=== PATIENT | female | born 1970 | race Caucasian/White ===

== ENCOUNTER 2021-02-25 14:55 | Outpatient (REF) | payer MEDICAID, SELFPAY ==
[2021-02-25 15:07] LABS: HCT 41.8 % (36.0-46.0); HGB 13.3 g/dL (11.2-15.7); MCH 28.5 pg (27.0-33.0); MCHC 31.8 % (32.0-36.0); MCV 89.7 fL (80-95); MPV 10.2 fL (8.0-11.0); Platelet Count 236 10^3/uL (130-400); RBC 4.66 10^6/uL (3.93-5.22); RDW 13.4 % (11.7-14.6); RDW-SD 44.1 fL; WBC 6.55 10^3/uL (4.4-10.8)
[2021-02-25 15:41] LABS: ALT 19 U/L (14-59); AST 13 U/L (15-37); Albumin 3.5 g/dL (3.4-5.0); Alkaline Phosphatase 123 U/L (46-116); Anion Gap 8.3 mmol/L (3-11); BUN 15 mg/dL (7-18); Bilirubin, Total 0.2 mg/dL (0.2-1.0); CO2 26.7 mmol/L (21.0-32.0); CREATININE 0.7 mg/dL (0.55-1.02); Calcium 8.6 mg/dL (8.5-10.1); Calculated LDL 120 mg/dL (<100); Chloride 102 mmol/L (98-107); Cholesterol 192 mg/dL (<200); Glucose 110 mg/dL (74-106); HDL Cholesterol 53 mg/dL (40-60); Potassium 4.3 mmol/L (3.5-5.1); Sodium 137 mmol/L (136-145); TSH (W/Ref FT4) 0.92 uIU/mL (0.36-3.74); Triglyceride 98 mg/dL (<150)
[2021-02-25 15:52] LABS: Vitamin D 25 Total 21.3 ng/mL (30-100)
== END 2021-02-25 14:56 | disposition home or self-care (01) ==
LOC: NCHCN 14:55
PROVIDERS: PCP Nurse Practitioner Family; Visit Provider Nurse Practitioner Family
DX: F33.9 Major depressive disorder, recurrent, unspecified (principal); Z72.0 Tobacco use; Z00.00 Encounter for general adult medical examination without abnormal findings
CPT/HCPCS: 80053; 80061; 82306; 85027; 84443

== ENCOUNTER → 2021-09-20 00:25 | Outpatient (CLI) | payer MEDICAID, SELFPAY ==
--- NOTE | 2021-09-20 | DI.RAD_ITS ---
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 TECHNIQUE: 2D digital imaging was performed of the lumbar spine. Five images were obtained. AP, la teral, right oblique, left oblique and L5-S1 spot views were obtained. COMPARISON: No exams were available for comparison FINDINGS: BONES: No fracture or destructive lesion. Endplate osteophytes are seen throughout the lumbar spine. No facet hypertrophy identified. DISKS: There is disc space narrowing at L1-L2 and L2-L3. ALIGNMENT: There is a mild right convex curvature of the thoracolumbar spine. No spondylolysis or sp ondylolisthesis. SOFT TISSUE: Atherosclerosis is present. IMPRESSION: Moderate degenerative changes in the lumbar spine. DATA REPOSITORY: RADIATION DOSE DELIVERED:
--- OUTSIDE RECORDS SUMMARY | 2021-09-20 00:27 | XMS_ITS | Clinical Summary ---
:1970 Author Organization [place] [address] Care Team Providers Name Role Phone Rj Herron DO Primary Care Provider Allergies No known active allergies Medications Medication Sig Dispensed Refills Start Date End Date Status PROAIR HFA 90 Inhale 2 puffs 5 01/14/2017 Active mcg/actuation HFA Aerosol into the lungs Inhaler as needed. gabapentin (NEURONTIN) Take 600 mg by 5 01/14/2017 Active 600 mg Tablet mouth 4 times daily. methylphenidate HCl Take 1 tablet 0 01/15/2017 Active (RITALIN) 20 mg Tablet by mouth 3 times daily. mirtazapine (REMERON) 15 Take 1 tablet 5 12/26/2016 Active mg Tablet by mouth nightly. oxyCODONE-acetaminophen Take 1 tablet 0 01/21/2017 Active (PERCOCET) 10-325 mg by mouth every Tablet 8 hours. Oxymorphone 15 mg Tablet Take 1 tablet 0 Active Sustained Release 12 hr by mouth nightly. Social History Tobacco Use Types Packs/Day Years Used Date Current Every Day Smoker Cigarettes 1 Smokeless Tobacco: Never Used Sex Assigned at Date Recorded Not on file Plan of Treatment Health Maintenance Due Date Last Done Comments Covid-19 Vaccine (#1) 1974 HIV screen 10/24/1987 Hepatitis C Screening 10/24/1987 Tdap adult 1988 Tetanus vaccine 1988 HPV test 10/24/1999 PAP Smear 10/24/1999 Breast Cancer Share Decision Needed 2009 Colonoscopy 2014 Breast Cancer screening 10/24/2019 Zoster vaccine (1 of 2) 10/24/2019 Influenza (Flu) vaccine (1 of 1 - Influenza standard 11/07/2021 series) Insurance Payer Benefit Plan / Subscriber ID Effective Dates Phone Addre ss Type Group [place] [id number] 2017-Pres [phone] [address] [facility] [address] [place], [place] [address] Care Teams Fingerprint Classifier Relationship Specialty Start Date End Date Rj Herron, PCP - General General Internal Medicine 08/08/15 [address] [place] [address]
--- OUTSIDE RECORDS SUMMARY | 2021-09-20 00:27 | XMS_ITS | Encounter Summary ---
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 Proven by MRI not responding to medical therapy? Rj Herron DO [facility] [address] [place] [address] [place] [address] Referral ID Status Reason Start Date Expiration Date Visits V isits Requested Authorized [id number] Closed Evaluate and 01/23/2017 01/23/2018 1 1 [facility] Encounter Details Date Type Department Care Team Description 02/12/2017 Office Visit [facility] Chroni c midline low back pain without sciatica; Dima FARRIS Chronic pain syndrome [facility] [address] [place], [place] [phone] Social History Tobacco Use Types Packs/Day Years Used Date Current Every Day Smoker Cigarettes 1 Smokeless Tobacco: Never Used Sex Assigned at Date Recorded Not on file documented as of this encounter Progress Notes [facility] PA - 02/12/2017 2:20 PM EST SUBJECTIVE: Marlene Beck is a 46-year-old female seen today for a chief complaint of chronic back pain present over 6 years. She reports having had some degree of back pain ever since a 2011 injury in which she apparently had an MRI performed which showed several bulging disks. She reports most of her pain is over the midline lumbosacral region without much consistent lower extremity pain radiation or any fixed motor weakness or sensory loss. Most of her pain is radiated over the low back. She is only comfortable when she is sitting and at rest and otherwise she notes that she is quite limited with walking and standing no more than 5-10 minutes. She reports the primary limitation is with regards to her back pain and she does not have lower extremity pain with this. She has longstanding history of opioid use and has been to several pain management clinics. Currently, she is taking oxymorphone 15 mg extended release at bedtime. Otherwise, she takes Percocet 10/325 mg up to 3 times per day, Neurontin 600 mg 4 times per day for pain control. She appears to have been taking this over a fairly long period of time and her [place] PDMP does show prescriptions going as far back as 05/2015 and her current prescriber is her primary care physician, Rj Herron DO. She does not report prior spine surgery. She continues to smoke one pack per day. She was trying to make efforts initially with smoking cessation with Chantix but she discontinued this. She denies alcohol use. She mentions being on Disability ever since last year. She is currently living by herself with a room that she is renting from a landlord. 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 OBJECTIVE: This is an overweight 46-year-old female, appears her stated age, is in no acute distress. Her gait is normal. She is able to toe walk and heel walk without weakness. She stands without evidence of obvious spinal deformity. She has level shoulders and pelvis. She is diffusely tender to palpation over the midline low back. She is able to flex 70 degrees, extend about 15 degrees. Her motor and sensory examinations show full symmetric intact sensation throughout. Reflexes are symmetric, both knees and both ankles. Negative straight leg raising bilaterally. No clonus or Babinski noted. Painless range of motion. Palpable peripheral pulses. There is no spine imaging available for review today. ASSESSMENT/PLAN: Marlene Beck is a 46-year-old female seen today for a chief complaint of chronic history of low back pain present over 6 years with longstanding history of opioid dependence as well. She has a reassuring neurological presentation without much concerning evidence of lumbosacral radiculopathy or spinal stenosis. I do not see much indication to proceed with further imaging at present given her benign neurological examination and given the predominance of low back pain. I advised Ms. Beck that she is not really likely a surgical candidate and that the more recommended mode of treatment for her proceeding forward would be to consider physical therapy and conditioning, if not going forward with a multidisciplinary intensive rehabilitation program with our functional zoroastrian approach. She did talk briefly with our case management social worker, ABDELRAHMAN Hein, who has tried to talk to her regarding this matter and addressing barriers that Ms. Beck reports with attending this kind of program with regards to her transportation issues and limited finances. I advised Ms. 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 I did also advise Ms. Beck that I am concerned about some degree of opioid induced hyperalgesia with her complaints, given that she is on a significant dosage of oxycodone and oxymorphone but is still having significant discomfort. We discussed that she may consider working with weaning off of these medications and she mentioned some unsuccessful attempts in the past with the use of methadone and Suboxone. We did discuss that she may want to consider the use of medical cannabis as this may be a more efficacious treatment option given her limited response to opioids. She will think about discussing this further with her primary care physician, Rj Herron, , if not considering doing this with our [facility], although she would have to establish the 3-month relationship first before an authorization for cannabis can be given to her. Otherwise, plan moving forward would be for her to undergo GAP Assessment, to evaluate her candidacyfor our 3-week multidisciplinary intensive rehabilitation Functional Nondenominational Program. documented in this encounter Plan of Treatment Not on filedocumented as of this encounter Visit Diagnoses Diagnosis Chronic midline low back pain without sc iatica Chronic pain syndrome documented in this encounter Care Teams Family Manager Relationship Specialty Start Date End Date Rj Herron DO PCP - General General Internal Medicine 08/08/15 [address] [place] [address] documented as of this encounter
--- OUTSIDE RECORDS SUMMARY | 2021-09-20 00:27 | XMS_ITS | Encounter Summary ---
:1970 [place] [address] Care Team Providers Name Role Phone Rj Herron DO Primary Care Provider Encounter Details Date Type Department Care Team Description 03/03/2017 Telephone [facility] [place] [phone] Social History Tobacco Use Types Packs/Day Years Used Date Current Every Day Smoker Cigarettes 1 Smokeless Tobacco: Never Used Sex Assigned at Date Recorded Not on file documented as of this encounter Miscellaneous Notes Telephone Encounter - Paula Gaitan - 03/03/2017 8:48 AM EST Called patient x2 to cancel her appointment with Sonia Morton today, as she is out sick, but patientdoes not have a voicemail. I also called the number listed under her emergency contact, but did not leave a message because the name on the voicemail was not the name of her emergency contact. If patient call in, her GAP assessment and med clearance appointment for today need to be rescheduled. documented in this encounter Plan of Treatment Not on filedocumented as of this encounter Visit Diagnoses Not on filedocumented in this encounter Care Teams Steel Post Installer Relationship Specialty Start Date End Date Rj Herron DO PCP - General General Internal Medicine 08/08/[address] [place] [id number] documented as of this encounter
--- NOTE | 2021-09-20 13:03 | DI.CTLCSR_ITS ---
Exam(s) CT CHEST LUNG CANCER SCREEN EXAM: CT CHEST LUNG CANCER SCREEN CLINICAL HISTORY: TOBACCO USE Z72.0, SCREENING FOR LUNG CANCER TECHNIQUE: Imaging Protocol: Axial computed tomography images with coronal and sagittal reformatted images were created and reviewed COMPARISON: No exams were available for comparison FINDINGS: Tracheobronchial tree: Patent where visualized. Pulmonary parenchyma: No consolidation or dominant measurable mass. No architectural distortion. Lung Nodules: There is a 5.5 mm nodule in the superior segment of the right lower lobe. There is a 4 .9 mm nodule associated with the right major fissure. There are couple of smaller subpleural nodules present. Mediastinum and Hannha: No dominant adenopathy or fluid collection. The esophagus is unremarkable. Thyroid gland: Unremarkable. Lymph nodes: Unremarkable. Pleura: No effusion or pneumothorax. Heart: The heart is not dilated. Coronary artery calcifications are present. No pericardial effusion . Aorta: Thoracic aorta non-dilated.Atherosclerosis is present. Upper abdomen: Unremarkable. Soft Tissues: Unremarkable. There appears to be a small bottle located in the patient's left bra. Bones: Within normal limits. IMPRESSION: Pulmonary nodules. The largest measures 5.5 mm. Lung RADS Cat 2 - Benign Appearance / Behavior: Nodules with a very low likelihood of becoming a clin ically active cancer due to size or lack of growth Lung-RADS 1.0 CATEGORIES: Category 0 - Prior chest CT exam(s) being located for comparison. Category 1 - Annual screening in 12 months. No nodules or definitely benign nodules. Category 2 - Annual screening in 12 months. Benign appearance. Nodules with low likelihood of becomin g active cancer. Category 3 - 6-month follow-up. Probably benign. Short-term follow-up suggested. Nodules with low lik elihood of becoming active cancer. Category 4A - 3-month follow-up and CT/PET if >8 mm in size. Suspicious finding. Findings which requi re additional testing. Category 4B - Findings which require additional testing and tissue sampling. Suspicious finding. Category 4X - Category 3 or 4 nodules with additional features or imaging findings that increases the suspicion of malignancy. Modifier S- Potentially clinically significant finding. (Non lung cancer) RADIATION DOSE DELIVERED: 78.8mGy.cm Total DLP 1.84mGy CTDIvol 78.8mGy.cm Total DLP 1.84mGy CTDIvol DATA REPOSITORY: All CT scans at this facility are submitted to the National Radiology Data Registry (NRDR) Dose Index Registry (DIR) with the [employer] (ACR). RADIATION OPTIMIZATION: All CT scans at this facility use at least one of these dose optimization te chniques: automated exposure control; mA and/or kV adjustment per patient size (includes targeted exa ms where dose is matched to clinical indication); or iterative reconstruction.
== END ==
PROVIDERS: PCP Nurse Practitioner Family; Visit Provider Nurse Practitioner Family
DX: Z12.2 Encounter for screening for malignant neoplasm of respiratory organs (principal); R91.8 Other nonspecific abnormal finding of lung field; Z12.31 Encounter for screening mammogram for malignant neoplasm of breast; M47.816 Spondylosis without myelopathy or radiculopathy, lumbar region; Z78.0 Asymptomatic menopausal state; Z72.0 Tobacco use
CPT/HCPCS: 71271; 72110

== ENCOUNTER 2021-11-01 18:59 | Outpatient (REF) | payer MEDICAID, SELFPAY ==
[2021-11-07 12:07] LABS: Methylphenidate Negative ng/mL (Cutoff: 10); Ritalinic Acid Negative ng/mL (Cutoff: 50)
== END 2021-11-01 19:00 | disposition home or self-care (01) ==
LOC: NCHCN 18:59
PROVIDERS: PCP Nurse Practitioner Family; Visit Provider Nurse Practitioner Family
DX: Z51.81 Encounter for therapeutic drug level monitoring (principal)
CPT/HCPCS: 80360

== ENCOUNTER 2022-01-02 14:43 | Outpatient (REF) | payer MEDICAID, SELFPAY ==
[2022-01-07 11:56] LABS: Methylphenidate 2061 ng/mL (Cutoff: 10); Ritalinic Acid >100000 ng/mL (Cutoff: 50)
[2022-01-09 06:30] LABS: Cocaine Negative ng/mL (Cutoff: 50)
== END 2022-01-02 14:44 | disposition home or self-care (01) ==
LOC: NCHCN 14:43
PROVIDERS: PCP Nurse Practitioner Family; Visit Provider Nurse Practitioner Family
DX: F90.0 Attention-deficit hyperactivity disorder, predominantly inattentive type (principal); Z79.899 Other long term (current) drug therapy
CPT/HCPCS: 80360; 80353

== ENCOUNTER 2022-01-10 13:47 | Outpatient (REF) | payer MEDICAID, SELFPAY ==
[2022-01-16 14:14] LABS: Methylphenidate 2095 ng/mL (Cutoff: 10); Ritalinic Acid >100000 ng/mL (Cutoff: 50)
[2022-01-17 09:52] LABS: Benzoylecgonine 723 ng/mL (Cutoff: 50); Cocaine Interpretation Positive.
== END 2022-01-10 13:48 | disposition home or self-care (01) ==
LOC: NCHCN 13:47
PROVIDERS: PCP Nurse Practitioner Family; Visit Provider Nurse Practitioner Family
DX: Z51.81 Encounter for therapeutic drug level monitoring (principal); F90.9 Attention-deficit hyperactivity disorder, unspecified type
CPT/HCPCS: 80360; 80353

== ENCOUNTER 2022-01-27 09:15 | Emergency (ER) | payer MEDICAID, SELFPAY ==
[2022-01-27 09:22] VITALS: BP 161/91; PULSE 87; RESP 18; TEMP 34.5; O2SAT 95
--- NOTE | 2022-01-27 09:47 | ED.GENADUL_ITS ---
Discharge Plan Disposition Patient Disposition: Home Discharge Details Chief Complaint: DentalOral Clinical Impression: Pain, dental Primary Care Provider: Pippa Partida ED Provider: Vilma Olmstead Home Meds and New Rx's Prescriptions: New amoxicillin-pot clavulanate 875-125 mg tablet 1 tab PO BID Qty: 28 0RF ibuprofen 400 mg tablet 400 mg PO TID PRN (Reason: pain) Qty: 30 0RF No Action methadone 10 MG/ML concentrate 100 mg PO DAILY Label Comments: has been on program x4 months Discharge Instructions Instructions: Dental Abscess (ED), Toothache (ED) Additional Instructions: Please return immediately to the emergency department if you develop any new or worsening symptoms, if your condition does not improve as expected, or if you become otherwise concerned. It is extremely important that you call soon as possible to make an appointment to be seen in follow-up for this visit by your primary care doctor and a dentist. Referrals: Pippa Partida [Primary Care Provider] - Discharge Data Discharge Date/Time-TO BE ENTERED AT DEPARTURE: 01/27/22 13:10 Medical Decision Making Concern for dental infection, osteomyelitis, less likely abscess (no visible intraoral/dental abscess), other. Exam/history at this time is not consistent with sepsis, meningitis, Syed's angina, pathology involving the neck or airway, acute emergent intracranial process, CVA. Plan for IV placement, screening labs, CT face, IV Toradol. Cellulitis labs reviewed, WBC 8.82, hemoglobin 13.1, ESR 54, anion gap 7.8, CRP 2.7. CT face per radiology shows chronic poor dentition, no drainable abscess, no acute process. Plan for Augmentin, Rx for ibuprofen, outpatient follow-up with PCP and dental. Return to emergency department precautions, home care, and importance of outpatient follow-up were discussed with Pt. Pt verbalizes understanding of the plan and is amenable. Patient discharged to home with clear plan for outpatient follow-up. All questions were answered. Disposition decision was made weighing the risks and benefits of hospitalization versus outpatient treatment, the risk for further decompensation, and the patient's wishes. Medical Records Medical records reviewed: Yes I reviewed the patient's medical records. Imaging Data Radiologic Study: Attestation: I personally reviewed and interpreted this imaging study as follows: Radiologist's impression: EXAM:? CT FACIAL W CLINICAL HISTORY: ? left mandibular and left facial pain. ? TECHNIQUE:? Imaging Protocol: Axial computed tomography images with coronal and sagittal reformatted images were created and reviewed CONTRAST MATERIAL:? Intravenous: Omnipaque 350 Contrast volume:structured data in ml Contrast route:IV - Oral: yes / no COMPARISON:? No exams were available for comparison FINDINGS: Facial Bones:? No fracture is noted in facial bones. Sinuses and Mastoids:? Prior right medial antrectomy.? Severe mucous retention in the right maxillary sinus.. Globes, extraocular muscles, optic nerves and retrobulbar fat:? Normal. Upper aerodigestive tract: Ami bullosa of both middle turbinates.? Nasal cavity clear. ?bilateral temporomandibular joints:? Normal. Soft tissues: Mild stranding in the fat over the left lower border of the mandible.? No abscess.? Small adjacent lymph nodes, reactive. Visualized portions of the brain appear normal. Dental: Numerous dental caries maxillary and mandibular.? Multiple areas of? periapical lucency bilateral. IMPRESSION: Multiple maxillary and mandibular dental caries with periapical lucencies.? No evidence of soft tissue abscess. Lab Data Lab results reviewed: Yes I reviewed the patient's lab results. Labs: Laboratory Tests Range/Units 01/27/22 01/27/22 01/27/22 10:12 10:12 10:12 WBC (4.4-10.8) 10^3/uL 8.82 RBC (3.93-5.22) 10^6/uL 4.72 Hgb (11.2-15.7) g/dL 13.1 Hct (36.0-46.0) % 40.7 MCV (80-95) fL 86 MCH (27.0-33.0) pg 27.8 MCHC (32.0-36.0) % 32.2 RDW (11.7-14.6) % 15.0 H Plt Count (130-400) 10^3/uL 277 MPV (8.0-11.0) fL 10.2 Immature Gran % 0.3 Neutrophils % 64.1 Lymphocytes % 25.5 Monocytes % 8.4 Eosinophils % 1.2 Basophils % 0.5 Nucleated RBC % (0.0-0.3) % 0.0 Absolute Neutrophils (1.2-6.7) 10^3/uL 5.65 Absolute Lymphocytes (1.2-3.4) 10^3/uL 2.25 Absolute Monocytes (0.1-0.8) 10^3/uL 0.74 Absolute Eosinophils (0.0-0.7) 10^3/uL 0.11 Absolute Basophils (0.0-0.2) 10^3/uL 0.04 ESR (0-30) mm/hr Sodium (136-145) mmol/L 137 Potassium (3.5-5.1) mmol/L 3.9 Chloride (98-107) mmol/L 99 Carbon Dioxide (21.0-32.0) mmol/L 30.2 Anion Gap (3-11) mmol/L 7.8 BUN (7-18) mg/dL 17 Creatinine (0.55-1.02) mg/dL 0.8 Est GFR (CKD-EPI 2020) (mL/min/1.73m2) 88.60 Glucose (74-106) mg/dL 105 Calcium (8.5-10.1) mg/dL 8.8 Total Bilirubin (0.2-1.0) mg/dL 0.4 AST (15-37) U/L 21 ALT (14-59) U/L 25 Alkaline Phosphatase (46-116) U/L 125 H C-Reactive Protein (0.0-0.3) mg/dL 2.70 H Cancelled Total Protein (6.4-8.2) g/dL 8.4 H Albumin (3.4-5.0) g/dL 3.5 Range/Units 01/27/ 10:12 WBC (4.4-10.8) 10^3/uL RBC (3.93-5.22) 10^6/uL Hgb (11.2-15.7) g/dL Hct (36.0-46.0) % MCV (80-95) fL MCH (27.0-33.0) pg MCHC (32.0-36.0) % RDW (11.7-14.6) % Plt Count (130-400) 10^3/uL MPV (8.0-11.0) fL Immature Gran % Neutrophils % Lymphocytes % Monocytes % Eosinophils % Basophils % Nucleated RBC % (0.0-0.3) % Absolute Neutrophils (1.2-6.7) 10^3/uL Absolute Lymphocytes (1.2-3.4) 10^3/uL Absolute Monocytes (0.1-0.8) 10^3/uL Absolute Eosinophils (0.0-0.7) 10^3/uL Absolute Basophils (0.0-0.2) 10^3/uL ESR (0-30) mm/hr 54 H Sodium (136-145) mmol/L Potassium (3.5-5.1) mmol/L Chloride (98-107) mmol/L Carbon Dioxide (21.0-32.0) mmol/L Anion Gap (3-11) mmol/L BUN (7-18) mg/dL Creatinine (0.55-1.02) mg/dL Est GFR (CKD-EPI 2020) (mL/min/1.73m2) Glucose (74-106) mg/dL Calcium (8.5-10.1) mg/dL Total Bilirubin (0.2-1.0) mg/dL AST (15-37) U/L ALT (14-59) U/L Alkaline Phosphatase (46-116) U/L C-Reactive Protein (0.0-0.3) mg/dL Total Protein (6.4-8.2) g/dL Albumin (3.4-5.0) g/dL Sign Out No HPI General Mode of arrival: ambulatory . Date/Time Provider Initiated Documentation: 01/27/22 09:41 . Limitations to Documentation: no limitations . Information obtained by: patient, RN notes reviewed and old records reviewed . HPI Narrative: Marlene Beck is a 61-year-old woman with a history of substance use disorder on methadone presenting to the emergency department with facial pain. Patient reports that she has had pain in her left face, jaw, and chin for 1 week. She reports that pain has gradually been increasing and has been constant. She also reports that she has a left-sided headache. She denies any other pain, fevers, cough, shortness of breath, vomiting, diarrhea, vision changes, numbness, weakness, rash. Patient reports that she has poor dentition and has had tooth aches in the past but has never had pain like this before. She denies trauma or any other known inciting event. Patient reports that she has been taking quite a bit of Tylenol 3 times a day for pain, has also occasionally been taking ibuprofen. Patient states that she usually takes what her friends can give her. Related Data Home Medications Medication Instructions Recorded Confirmed methadone 10 mg/mL oral concentrate 100 mg PO DAILY 09/24/16 09/24/16 amoxicillin 875 mg-potassium 1 tab PO BID #28 tabs 01/27/22 clavulanate 125 mg tablet ibuprofen 400 mg tablet 400 mg PO TID PRN pain #30 tabs 01/27/22 Previous Rx's Medication Instructions Recorded amoxicillin 875 mg-potassium 1 tab PO BID #28 tabs 01/27/22 clavulanate 125 mg tablet ibuprofen 400 mg tablet 400 mg PO TID PRN pain #30 tabs 01/27/22 Allergies Allergy/AdvReac Type Severity Reaction Status Date / Time No Known Allergies Allergy Unverified 01/27/22 09:24 General Stated Complaint: DentalOral DIANE: 4 Review of Systems Narrative: Constitutional: denies fevers Eyes: denies eye pain, vision changes ENT: denies ear pain, dental pain, sore throat, reports left-sided face and jaw pain Cardiovascular: denies chest pain Respiratory: denies SOB, cough GI: denies abdominal pain, vomiting, diarrhea : denies flank pain MSK: denies back pain, neck pain, arthralgias, myalgias Skin: denies rash Neuro: denies numbness, weakness, reports headache PFSH All Active Problems (Updated 01/27/22 @ 12:56 by Vilma Olmstead MD) Pain, dental (Acute) Social History Smoking/Tobacco Use Status: Current every day Tobacco Type: cigarettes Smoking risk assessment performed?: Yes Alcohol Intake: never Drug use: Never Substance use type: does not use Do you feel safe at home: Yes Do you feel safe in your relationship?: Yes Exam Narrative Exam Narrative: Constitutional: [id number], pleasant, very uncomfortable appearing, conversing normally HENT: head atraumatic/normocephalic/normal inspection, mucous membranes moist, poor dentition throughout, tenderness to palpation along the left lower outer gumline that reproduces pain, no erythema/edema/fluctuance, no tenderness palpation along the upper left gumline, no edema/erythema/fluctuance of left upper gumline, no elevation of the tongue, no sublingual induration, normal voice, handling secretions without issue, mild tenderness to palpation left infraorbital area, significant tenderness palpation along the left mandible that reproduces pain, worse over the chin, no overlying skin changes/edema of the left face Eyes: conjunctiva normal, sclera normal, pupils 3mm b/l Neck: no stridor, normal ROM, supple, trachea midline, no anterior posterior lymphadenopathy, no tenderness to palpation of the posterior anterior neck, no edema Resp: normal work of breathing, speaking in full sentences Cardio: normal rate, normal rhythm Skin: warm, dry, normal color, no rash Neuro: alert, not altered, grossly non-focal, normal tone Ext: Moving all extremities equally Psych: normal mood, normal affect, normal behavior Course Vital Signs Vital signs: Vital Signs Temperature 34.5 C L 01/27/22 09:22 Pulse 87 01/27/22 09:22 Respiratory Rate 18 01/27/22 09:22 Blood Pressure 161/91 H 01/27/22 09:22 Pulse Oximetry 95 01/27/22 09:22 Temperature 34.5 C L 01/27/22 09:22 Temperature Source Temporal Artery Scan 01/27/22 09:22 Pulse 87 01/27/22 09:22 Respiratory Rate 18 01/27/22 09:22 Respiratory Effort Non-Labored 01/27/22 09:25 Blood Pressure 161/91 H 01/27/22 09:22 Blood Pressure Position Sitting 01/27/22 09:22 Pulse Oximetry 95 01/27/22 09:22 Oxygen Delivery Method Room Air 01/27/22 09:22 Oxygen Flow Rate 0 01/27/22 09:22
[2022-01-27 10:26] LABS: Abs Immature Grans 0.03 10^3/uL (0.0-0.06); Absolute Basophil Count 0.04 10^3/uL (0.0-0.2); Absolute Eosinophil Count 0.11 10^3/uL (0.0-0.7); Absolute Lymphocyte Count 2.25 10^3/uL (1.2-3.4); Absolute Monocyte Count 0.74 10^3/uL (0.1-0.8); Absolute Neutrophil Count 5.65 10^3/uL (1.2-6.7); Basophils % 0.5; Eosinophils % 1.2; HCT 40.7 % (36.0-46.0); HGB 13.1 g/dL (11.2-15.7); Immature Grans % 0.3; Lymphocytes % 25.5; MCH 27.8 pg (27.0-33.0); MCHC 32.2 % (32.0-36.0); MCV 86 fL (80-95); MPV 10.2 fL (8.0-11.0); Monocytes % 8.4; Neutrophils % 64.1; Platelet Count 277 10^3/uL (130-400); RBC 4.72 10^6/uL (3.93-5.22); RDW-SD 47.6 fL; WBC 8.82 10^3/uL (4.4-10.8)
[2022-01-27 10:30] LABS: ESR 54 mm/hr (0-30)
[2022-01-27 10:42] LABS: ALT 25 U/L (14-59); AST 21 U/L (15-37); Albumin 3.5 g/dL (3.4-5.0); Alkaline Phosphatase 125 U/L (46-116); Anion Gap 7.8 mmol/L (3-11); BUN 17 mg/dL (7-18); Bilirubin, Total 0.4 mg/dL (0.2-1.0); CO2 30.2 mmol/L (21.0-32.0); CREATININE 0.8 mg/dL (0.55-1.02); Calcium 8.8 mg/dL (8.5-10.1); Chloride 99 mmol/L (98-107); Glucose 105 mg/dL (74-106); Potassium 3.9 mmol/L (3.5-5.1); Sodium 137 mmol/L (136-145); Total Protein 8.4 g/dL (6.4-8.2)
[2022-01-27] MEDS: Ketorolac 15 MG/ML VIAL IVP (10:47)
[2022-01-27 11:02] VITALS: BP 129/69; PULSE 72; O2SAT 93
[2022-01-27 11:03] VITALS: O2SAT 93
[2022-01-27 11:10] VITALS: O2SAT 91
--- NOTE | 2022-01-27 11:44 | DI.CT_ITS ---
Exam(s) CT FACIAL W EXAM: CT FACIAL W CLINICAL HISTORY: left mandibular and left facial pain. TECHNIQUE: Imaging Protocol: Axial computed tomography images with coronal and sagittal reformatted images were created and reviewed CONTRAST MATERIAL: Intravenous: Omnipaque 350 Contrast volume:structured data in ml Contrast route:I V - Oral: yes / no COMPARISON: No exams were available for comparison FINDINGS: Facial Bones: No fracture is noted in facial bones. Sinuses and Mastoids: Prior right medial antrectomy. Severe mucous retention in the right maxillary sinus.. Globes, extraocular muscles, optic nerves and retrobulbar fat: Normal. Upper aerodigestive tract: Ami bullosa of both middle turbinates. Nasal cavity clear. bilateral temporomandibular joints: Normal. Soft tissues: Mild stranding in the fat over the left lower border of the mandible. No abscess. Sma ll adjacent lymph nodes, reactive. Visualized portions of the brain appear normal. Dental: Numerous dental caries maxillary and mandibular. Multiple areas of periapical lucency bilat eral. IMPRESSION: Multiple maxillary and mandibular dental caries with periapical lucencies. No evidence of soft tissu e abscess. RADIATION DOSE DELIVERED: Total DLP DATA REPOSITORY: All CT scans at this facility are submitted to the National Radiology Data Registry (NRDR) Dose Index Registry (DIR) with the [employer] ([employer]). RADIATION OPTIMIZATION: All CT scans at this facility use at least one of these dose optimization te chniques: automated exposure control; mA and/or kV adjustment per patient size (includes targeted exa ms where dose is matched to clinical indication); or iterative reconstruction.
[2022-01-27] MEDS: Omnipaque 350 MG/ML 500 ML BTL-Imaging package 100 ML IJ (11:45)
[2022-01-27] MEDS: Normal Saline - Diluent 50 ML VIAL IJ (11:46)
[2022-01-27] MEDS: ACETAMINOPHEN 1,000 MG/100 ML BTL 400 MG IVPB (11:46)
[2022-01-27] MEDS: Amoxicillin 875/Clav. 125 TAB PO (13:05)
== END 2022-01-27 13:10 | disposition home or self-care (01) ==
PROVIDERS: Emergency Provider Student in an Organized Health Care Education/Training Program; PCP Nurse Practitioner Family
DX: K08.89 Other specified disorders of teeth and supporting structures (principal)
CPT/HCPCS: 36415; 80053; 85652; 96374; 96375; 99285; 70487; 85025; 86140; 99284; J0131; J1885

== ENCOUNTER 2022-01-29 05:57 | Emergency (ER) | payer MEDICAID, SELFPAY ==
[2022-01-29 06:06] VITALS: BP 157/91; PULSE 99; RESP 16; TEMP 37.1; O2SAT 96
--- NOTE | 2022-01-29 06:26 | ED.GENADUL_ITS ---
Discharge Plan Disposition Patient Disposition: Home Condition: Improving Discharge Details Clinical Impression: Facial cellulitis Primary Care Provider: Pippa Partida ED Provider: Jayson Castillo Home Meds and New Rx's Prescriptions: New cefpodoxime 200 mg tablet 400 mg PO BID 10 Days Qty: 40 0RF Rx Instructions: must administer with a meal/food metronidazole 500 mg tablet 500 mg PO BID 10 Days Qty: 20 0RF No Action methadone 10 MG/ML concentrate 100 mg PO DAILY Label Comments: has been on program x4 months amoxicillin-pot clavulanate 875-125 mg tablet 1 tab PO BID Qty: 28 0RF ibuprofen 400 mg tablet 400 mg PO TID PRN (Reason: pain) Qty: 30 0RF Discharge Instructions Instructions: Cellulitis (ED) Additional Instructions: Please follow-up with dental specialist in the coming week. Please return to the emergency department for any worsening symptoms. Take medication as prescribed. Discharge Data Discharge Date/Time-TO BE ENTERED AT DEPARTURE: 01/29/22 12:00 Medical Decision Making <Judy Darnell DO - Last Filed: 01/30/22 05:12> Dr. 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 Her blood pressure and heart rate are moderately elevated. She was unsure of a specific area of dental pain but has poor dentition throughout and tenderness to palpation around tooth #20 and 21. There is no obvious dental abscess noted. She has a moderate amount of left-sided facial edema extending from the left anterior mandible and to the submandibular area. Consider progression to Syed's angina. She otherwise is protecting her airway without drooling or trismus. Normal. Oropharynx clear throughout. Although her CT facial bones was -2 days ago, with progression of swelling and now involving the submand ibular region, will repeat CT face with IV contrast and give a dose of IV Clindamycin. She appears significantly uncomfortable so a dose of IV Dilaudid ordered. 0800 -- case endorsed to Dr. Castillo to follow up on labs and CT results and final disposition. Dr. Castillo 11: 53 evidence of facial cellulitis likely odontogenic in nature. Patient did have slight increase in swelling after initial antibiotic dose now improving after rest and dexamethasone. Patient be discharged on cefpodoxime and Flagyl given strict return precautions. Currently tolerating secretions no acute distress no respiratory distress normal voice. Medical Records Medical records reviewed: Yes I reviewed the patient's medical records. Medical records narrative: 01/27/22 CT FACIAL W CLINICAL HISTORY: ? left mandibular and left facial pain. ? TECHNIQUE:? Imaging Protocol: Axial computed tomography images with coronal and sagittal reformatted images were created and reviewed CONTRAST MATERIAL:? Intravenous: Omnipaque 350 Contrast volume:structured data in ml Contrast route:IV - Oral: yes / no COMPARISON:? No exams were available for comparison FINDINGS: Facial Bones:? No fracture is noted in facial bones. Sinuses and Mastoids:? Prior right medial antrectomy.? Severe mucous retention in the right maxillary sinus.. Globes, extraocular muscles, optic nerves and retrobulbar fat:? Normal. Upper aerodigestive tract: Ami bullosa of both middle turbinates.? Nasal cavity clear. ?bilateral temporomandibular joints:? Normal. Soft tissues: Mild stranding in the fat over the left lower border of the mandible.? No abscess.? Small adjacent lymph nodes, reactive. Visualized portions of the brain appear normal. Dental: Numerous dental caries maxillary and mandibular.? Multiple areas of? periapical lucency bilateral. IMPRESSION: Multiple maxillary and mandibular dental caries with periapical lucencies.? No evidence of soft tissue abscess. <Jayson Castillo MD - Last Filed: 01/29/22 11:58> 0730 -- 51yo F history of narcotic abuse in remission on methadone seen here 2 days ago for a dental infection and had a CT face negative for abscess and started on Augmentin presents with worsening facial pain and swelling. Her blood pressure and heart rate are moderately elevated. She was unsure of a specific area of dental pain but has poor dentition throughout and tenderness to palpation around tooth #20 and 21. There is no obvious dental abscess noted. She has a moderate amount of left-sided facial edema extending from the left anterior mandible and to the submandibular area. Consider progression to Syed's angina. She otherwise is protecting her airway without drooling or trismus. Normal. Oropharynx clear throughout. Although her CT facial bones was -2 days ago, with progression of swelling and now involving the submandibular region, will repeat CT face with IV contrast. She appears sig nificantly uncomfortable so a dose of IV Dilaudid ordered. 0800 -- case endorsed to Dr. Castillo to follow up on labs and CT results and final disposition. 11: 53 evidence of facial cellulitis likely odontogenic in nature. Patient did have slight increase in swelling after initial antibiotic dose now improving after rest and dexamethasone. Patient be discharged on cefpodoxime and Flagyl given strict return precautions. Currently tolerating secretions no acute distress no respiratory distress normal voice. Sign Out No HPI <Judy Darnell DO - Last Filed: 01/30/22 05:12> General Mode of arrival: ambulatory . Date/Time Provider Initiated Documentation: 01/29/22 06:25 . Limitations to Documentation: no limitations . Information obtained by: patient . HPI Narrative: Pt is a 51-year-old female with a history of narcotic abuse in remission on methadone who was seen here 2 days ago for dental infection and had a CT face which showed no evidence of abscess and started on Augmentin presents with worsening pain now with progressively worsening left-sided facial swelling. Patient states she has been taking the Augmentin as prescribed for the past 2 days. She received her methadone this morning. She states the swelling has progressed from her left jaw to under her left chin. She denies any difficulty swallowing or difficulty breathing. Related Data Home Medications Medication Instructions Recorded Confirmed methadone 10 mg/mL oral concentrate 100 mg PO DAILY 09/24/16 09/24/16 amoxicillin 875 mg-potassium 1 tab PO BID #28 tabs 01/27/22 clavulanate 125 mg tablet ibuprofen 400 mg tablet 400 mg PO TID PRN pain #30 tabs 01/27/22 cefpodoxime 200 mg tablet 400 mg PO BID 10 days #40 tabs 01/29/22 metronidazole 500 mg tablet 500 mg PO BID 10 days #20 tabs 01/29/22 Previous Rx's Medication Instructions Recorded amoxicillin 875 mg-potassium 1 tab PO BID #28 tabs 01/27/22 clavulanate 125 mg tablet ibuprofen 400 mg tablet 400 mg PO TID PRN pain #30 tabs 01/27/22 cefpodoxime 200 mg tablet 400 mg PO BID 10 days #40 tabs 01/29/22 metronidazole 500 mg tablet 500 mg PO BID 10 days #20 tabs 01/29/22 Allergies Allergy/AdvReac Type Severity Reaction Status Date / Time No Known Allergies Allergy Unverified 01/27/22 09:24 General Stated Complaint: FacialProb DIANE: 3 Review of Systems <Judy Darnell DO - Last Filed: 01/30/22 05:12> All systems reviewed & are unremarkable except as noted in HPI and below Constitutional Constitutional: Reports as per HPI, Denies chills and Denies fever(s) Eyes Eyes: Denies blurry vision ENT Ears, Nose, Mouth, and Throat: Reports dental pain, Denies dizziness, Denies sore throat and Denies throat swelling Cardiovascular Cardiovascular: Denies chest pain and Denies dyspnea Respiratory Respiratory: Denies cough and Denies dyspnea Gastrointestinal Gastrointestinal: Denies abdominal pain, Denies diarrhea and Denies vomiting Genitourinary Genitourinary: Denies hematuria and Denies dysuria Musculoskeletal Musculoskeletal: Denies back pain and Denies numbness Integumentary/Breasts Skin/Breast: Denies lesions and Denies rash Neurologic Neurologic: Denies dizziness, Denies localized weakness and Denies numbness Allergic/Immunologic Allergic/Immunologic: Denies throat swelling PFSH <Judy Darnell DO - Last Filed: 01/30/22 05:12> All Active Problems (Updated 01/29/22 @ 11:54 by Jayson Castillo MD) Facial cellulitis (Acute) Pain, dental (Acute) Medical History (Updated 01/29/22 @ 11:54 by Jayson Castillo MD) Narcotic abuse in remission Surgical History (Updated 01/29/22 @ 07:40 by Judy Darnell DO) History of bilateral tubal ligation Social History Smoking/Tobacco Use Status: Current every day Tobacco Type: cigarettes Smoking risk assessment performed?: Yes Alcohol Intake: never Drug use: Never Substance use type: does not use Do you feel safe at home: Yes Do you feel safe in your relationship?: Yes Exam <Judy Darnell DO - Last Filed: 01/30/22 05:12> Const General: cooperative and uncomfortable Orientation: alert, awake and oriented x3 HENMT Head: normal to inspection Ears: hearing grossly normal bilaterally, external ears normal and TM's normal bilaterally Face images: 1. Moderate edema and induration noted to the left lateral anterior jaw and extending to the left chin and submandibular area. There is no obvious area of fluctuance noted to the external face. The mandibular and submandibular region is indurated and tender to palpation. There is no crepitus. Mouth: oral mucosae normal Teeth and gingiva: poor dentition Teeth image: 1. Multiple missing teeth throughout. She has tenderness palpation around what would be expected to be tooth #20 or 21. There is no obvious dental abscess noted. Throat: posterior oropharynx normal Eyes General: appearance normal, both eyes and all related structures Pupils: PERRL EOM: EOM intact bilaterally Neck Neck: normal visual inspection and No submandibular swelling Lymphatic: no lymphadenopathy noted Chest Chest: normal inspection of the chest and no tenderness Resp Effort & Inspection: normal respiratory effort and able to speak in complete sentences Auscultation: clear to auscultation bilaterally Cardio Rate: regular rate Rhythm: regular rhythm GI Inspection: normal to inspection Palpation: soft, not firm, not rigid and nontender Auscultation: normal bowel sounds Back/Spine/Pelvis Thoracic/Lumbar Spine: thoracic and lumbar spine normal to inspection Pelvis: no pain with anterior-posterior compression Skin General skin exam: no rashes or lesions noted Neuro General: patient alert, patient awake and patient oriented x3 Cognition: normal cognition Speech: speech normal Motor: muscle tone normal throughout Sensory Exam: no sensory deficits noted Extrem General: normal to inspection, full ROM, capillary refill normal, no calf tenderness bilaterally and no edema Psych Appearance: grossly normal Mental Status: mental status grossly normal Speech and Movement: speech and movement normal Affect: normal affect Course <Judy Darnell, DO - Last Filed: 01/30/22 05:12> Vital Signs Vital signs: Vital Signs Temperature 98.7 F 01/29/22 06:06 Pulse 99 H 01/29/22 06:06 Respiratory Rate 16 01/29/22 06:06 Blood Pressure 157/91 H 01/29/22 06:06 Pulse Oximetry 96 01/29/22 06:06 Temperature 98.7 F 01/29/22 06:06 Temperature Source Tympanic 01/29/22 06:06 Pulse 99 H 01/29/22 06:06 Respiratory Rate 16 01/29/22 06:06 Respiratory Effort 01/29/22 06:11 Blood Pressure 157/91 H 01/29/22 06:06 Blood Pressure Position Sitting 01/29/22 06:06 Pulse Oximetry 96 01/29/22 06:06 Oxygen Delivery Method Room Air 01/29/22 06:06 Oxygen Flow Rate 0 01/29/22 06:06 Pain Level 9 01/29/22 06:06 Sign Out <Judy Darnell DO - Last Filed: 01/30/22 05:12> Sign Out Data: Sign Out Comment: Diagnosed with dental infection and started on Augmentin [address] facial bones negative for dental abscess 2 days ago. Now presents with worsening facial pain and swelling extending from the mandible and submandibular region. Consider progression to Syed's angina. She otherwise is protecting her airway without signs of drooling or respiratory distress. Follow-up on repeat CT facial bones. Last updated by Judy Darnell DO at 01/29/22 07:47
[2022-01-29 08:14] LABS: Abs Immature Grans 0.02 10^3/uL (0.0-0.06); Absolute Basophil Count 0.03 10^3/uL (0.0-0.2); Absolute Eosinophil Count 0.12 10^3/uL (0.0-0.7); Absolute Monocyte Count 0.69 10^3/uL (0.1-0.8); Absolute Neutrophil Count 5.31 10^3/uL (1.2-6.7); Basophils % 0.4; Eosinophils % 1.5; HCT 38.7 % (36.0-46.0); HGB 12.2 g/dL (11.2-15.7); Immature Grans % 0.3; Lymphocytes % 22.6; MCHC 31.5 % (32.0-36.0); MCV 89 fL (80-95); MPV 9.6 fL (8.0-11.0); Monocytes % 8.7; Neutrophils % 66.5; Platelet Count 273 10^3/uL (130-400); RBC 4.35 10^6/uL (3.93-5.22); RDW 15.2 % (11.7-14.6); RDW-SD 49.4 fL; WBC 7.97 10^3/uL (4.4-10.8)
[2022-01-29] MEDS: Ketorolac 15 MG/ML VIAL IVP (08:16)
[2022-01-29] MEDS: HYDROmorphone 2 MG/ML SYR 0.5 MG IVP (08:16)
[2022-01-29] MEDS: Omnipaque 350 MG/ML 500 ML BTL-Imaging package IJ (08:25)
[2022-01-29] MEDS: Normal Saline Flush 10 ML SYR IVP (08:28)
[2022-01-29 08:34] LABS: ALT 35 U/L (14-59); AST 30 U/L (15-37); Albumin 3.5 g/dL (3.4-5.0); Alkaline Phosphatase 124 U/L (46-116); Anion Gap 6.6 mmol/L (3-11); BUN 15 mg/dL (7-18); Bilirubin, Total 0.2 mg/dL (0.2-1.0); CO2 27.4 mmol/L (21.0-32.0); CREATININE 0.8 mg/dL (0.55-1.02); Calcium 8.7 mg/dL (8.5-10.1); Chloride 100 mmol/L (98-107); Glucose 136 mg/dL (74-106); Sodium 134 mmol/L (136-145); Total Protein 8.1 g/dL (6.4-8.2)
[2022-01-29] MEDS: cefTRIAXone 2 GM/50 ML BAG IVPB (08:44)
[2022-01-29] MEDS: Normal Saline 1,000 ML 1000 ML IV (08:45)
[2022-01-29] MEDS: metroNIDAZOLE 500 MG/100 ML BAG 100 MG IVPB (09:30)
--- NOTE | 2022-01-29 09:30 | DI.CT_ITS ---
Exam(s) CT FACIAL W EXAM: CT FACIAL W CLINICAL HISTORY: L sided facial/jaw swelling/induration,r/o abscess. TECHNIQUE: Imaging Protocol: Axial computed tomography images with coronal and sagittal reformatted images were created and reviewed CONTRAST MATERIAL: Intravenous: Omnipaque 350 Contrast volume:100 mL COMPARISON: CT CT FACIAL W from 01/27/2022 FINDINGS: Facial Bones: Unchanged. Sinuses and Mastoids: There is mucosal thickening seen in the right maxillary sinus. The remaining visualized paranasal sinuses are clear. The mastoid air cells are well pneumatized. Globes, extraocular muscles, optic nerves and retrobulbar fat: Normal. Upper aerodigestive tract: There is stable mild asymmetry of the tonsils, left greater than right. N o drainable fluid collection is seen. Mandible and bilateral temporomandibular joints: There appears to have developed a small 1 x 0.3 cm fluid collection adjacent to the left to the left of midline. This may represent a small abscess. T he bony mandible is unchanged compared to the prior examination. Soft tissues: There has been interval development of edema and soft tissue thickening involving of th e left cheek and submental region. Enhancement: No abnormal enhancement. IMPRESSION: 1. Interval development of subcutaneous edema and soft tissue thickening involving the left cheek and submental region consistent with cellulitis. A small 1 x 0.3 cm fluid collection is suggested adjac ent to the left mandible to the left of the midline which may represent a tiny abscess. 2. Mild asymmetric enlargement of the left tonsils which may represent tonsillitis. No drainable abs cess is identified. 3. Findings were discussed with Dr. Maurer at 9:30 a.m. on 01/29/2022. RADIATION DOSE DELIVERED: Total DLP DATA REPOSITORY: All CT scans at this facility are submitted to the National Radiology Data Registry (NRDR) Dose Index Registry (DIR) with the [employer] (A[employer]). RADIATION OPTIMIZATION: All CT scans at this facility use at least one of these dose optimization te chniques: automated exposure control; mA and/or kV adjustment per patient size (includes targeted exa ms where dose is matched to clinical indication); or iterative reconstruction.
[2022-01-29] MEDS: Dexamethasone 10 MG/ML VIAL IVP (10:33)
[2022-01-29 12:00] VITALS: BP 108/76; PULSE 76; RESP 18; TEMP 37.1; O2SAT 96
== END 2022-01-29 12:00 | disposition home or self-care (01) ==
PROVIDERS: Physician Assistant; Emergency Provider Emergency Medicine; PCP Nurse Practitioner Family
DX: L03.211 Cellulitis of face (principal); R03.0 Elevated blood-pressure reading, without diagnosis of hypertension; R00.2 Palpitations; F17.210 Nicotine dependence, cigarettes, uncomplicated; Z98.51 Tubal ligation status
CPT/HCPCS: 80053; 96365; 96367; 96375; 99285; 70487; 85025; 99284; J1100; J1170; J1885

== ENCOUNTER 2022-11-03 11:36 | Emergency (ER) | payer MEDICAID, SELFPAY ==
[2022-11-03 11:54] VITALS: BP 160/91; PULSE 88; RESP 16; TEMP 37.1; O2SAT 91
[2022-11-03 12:19] VITALS: BP 152/73
[2022-11-03] MEDS: Sulfameth/Trimeth DS TAB 1 TAB PO (13:16)
[2022-11-03] MEDS: Cephalexin 500 MG CAP PO (13:16)
[2022-11-03] MEDS: Acetaminophen 325 MG TAB 650 MG PO (13:16)
[2022-11-03] MEDS: Ibuprofen 600 MG TAB PO (13:16)
--- NOTE | 2022-11-03 13:18 | ED.GENADUL_ITS ---
Discharge Plan Disposition Patient Disposition: Home Condition: Stable Discharge Details Clinical Impression: Cellulitis and abscess of upper extremity, IVDU (intravenous drug user) Primary Care Provider: None,None ED Provider: Mehran Olmstead Home Meds and New Rx's Prescriptions: New sulfamethoxazole-trimethoprim 800-160 mg tablet 1 tab PO BID Qty: 19 0RF cephalexin 500 mg tablet 500 mg PO QID Qty: 39 0RF Continued methadone 10 MG/ML concentrate 100 mg PO DAILY Patient Comments: has been on program x4 months Discharge Instructions Instructions: Abscess (ED) Additional Instructions: Please take full course of antibiotic as prescribed. Please take acetaminophen (tylenol) - 650mg every 6 hours by mouth as needed for pain. Please take ibuprofen as prescribed. Please contact your primary care physician to arrange follow-up. Return to the ER immediately for any worsening or new concerning symptoms. Discharge Data Discharge Date/Time-TO BE ENTERED AT DEPARTURE: 11/03/22 15:05 Medical Decision Making 52-year-old female with IV drug use, here with abscess of her left wrist at injection site with surrounding cellulitis tracking proximally up forearm. Patient is afebrile and hemodynamically stable. Considered foreign body. X-ray of the wrist was interpreted by me: Patient was given Tylenol and ibuprofen. Let was applied to abscess. Abscess and incision and drainage was performed. I have initiated treatment with Bactrim and cephalexin for associated cellulitis. HPI General Mode of arrival: ambulatory . Date/Time Provider Initiated Documentation: 11/03/22 11:42 . Limitations to Documentation: no limitations . Information obtained by: patient . HPI Narrative: 52-year-old female with history of IV drug use, presents with chief complaint of abscess. Patient has abscess left wrist developing over the past few days. She states she injected heroin and focal in into the area 4 to 5 days ago. Patient has no associated fever. She does note prior history of abscess on her leg. Related Data Home Medications Medication Instructions Recorded Confirmed methadone 10 mg/mL oral concentrate 100 mg PO DAILY 09/24/16 11/03/22 cephalexin 500 mg tablet 500 mg PO QID #39 tabs 11/03/22 sulfamethoxazole 800 1 tab PO BID #19 tabs 11/03/22 mg-trimethoprim 160 mg tablet Previous Rx's Medication Instructions Recorded cephalexin 500 mg tablet 500 mg PO QID #39 tabs 11/03/22 sulfamethoxazole 800 1 tab PO BID #19 tabs 11/03/22 mg-trimethoprim 160 mg tablet Allergies Allergy/AdvReac Type Severity Reaction Status Date / Time No Known Allergies Allergy Unverified 08/28/22 09:10 General Stated Complaint: Cellulitis DIANE: 3 Review of Systems Constitutional Constitutional: Denies fever(s) Integumentary/Breasts Skin/Breast: Reports as per HPI PFSH All Active Problems Cellulitis and abscess of upper extremity (Acute) IVDU (intravenous drug user) (Acute) Medical History Narcotic abuse in remission Surgical History History of bilateral tubal ligation Social History Smoking/Tobacco Use Status: Current every day Tobacco Type: cigarettes Smoking risk assessment performed?: Yes Alcohol Intake: never Drug use: Never Substance use type: does not use Do you feel safe at home: Yes Do you feel safe in your relationship?: Yes Exam Extrem Left upper extremity: wrist (Abscess anterior surface of left wrist with surrounding erythema ) Details: normal ROM Other: Erythema tracking proximately to mid right forearm. Distal neurologic function intact. 2+ radial pulse. Course Vital Signs Vital signs: Vital Signs Temperature 37.1 C 11/03/22 11:54 Pulse 88 11/03/22 11:54 Respiratory Rate 16 11/03/22 11:54 Blood Pressure 160/91 H 11/03/22 11:54 Pulse Oximetry 91 L 11/03/22 11:54 Temperature 37.1 C 11/03/22 11:54 Temperature Source Skin 11/03/22 11:54 Pulse 88 11/03/22 11:54 Respiratory Rate 16 11/03/22 11:54 Blood Pressure 152/73 H 11/03/22 12:19 Blood Pressure Position Sitting 11/03/22 11:54 Pulse Oximetry 91 L 11/03/22 11:54 Oxygen Delivery Method Room Air 11/03/22 11:54 Oxygen Flow Rate 0 11/03/22 11:54 Pain Level 8 11/03/22 11:54 Procedures Abscess I/D Site: Upper Extremity Side (if applicable): Left Local Anesthetic: Other Anesthetic (LET) Technique: Incised with #11 Blade Amount of fluid expressed (mL): 15 Packing used?: None Complications: Pain
[2022-11-03] MEDS: Lidocaine/Epinephri/Tetracaine Topical Gel 3 ML TP (13:27)
--- NOTE | 2022-11-03 13:27 | NUR.NOTE ---
Nursing Note: Pt stated, I had my tubes tied, so there is no way for me to be . Pt aware of next steps of care and need for radiology.
--- NOTE | 2022-11-03 14:03 | DI.RAD_ITS ---
Exam(s) XR WRIST LT COMPLETE EXAM: XR WRIST LT COMPLETE CLINICAL HISTORY: abscess, IVDU, assess for fb. TECHNIQUE: 2D digital imaging was performed. Three views. COMPARISON: No exams were available for comparison FINDINGS: BONES: No acute fracture is present. No bony destructive lesion is seen. JOINTS: The carpal bones are normally aligned. SOFT TISSUE: Marked ventral soft tissue swelling. No foreign body or gas collection. IMPRESSION: Soft tissue swelling. No foreign body. DATA REPOSITORY: RADIATION DOSE DELIVERED:
--- NOTE | 2022-11-03 17:34 | NUR.NOTE ---
Referral given to Care Management for follow up of abscess, cellulitis left wrist; in 1 week. Nursing Note:
== END 2022-11-03 15:05 | disposition home or self-care (01) ==
PROVIDERS: Emergency Provider Student in an Organized Health Care Education/Training Program
DX: L03.114 Cellulitis of left upper limb (principal); F11.90 Opioid use, unspecified, uncomplicated
CPT/HCPCS: 10060; 99283; 73110; 99284

== ENCOUNTER 2022-11-03 12:06 | Outpatient (CLI) | payer MEDICAID, SELFPAY ==
--- NOTE | 2022-11-03 12:00 | RT.EKG_ITS ---
APPROVED REPORT Exam: Resting ECG Reason for Exam: High Risk Medication Patient Location: O HR:78 bpm ECG Measurements Heart Rate 78 AXIS DE 130 P 76 QRSd 86 QRS 76 QT 399 T 30 QTc 455 Conclusion Sinus rhythm...normal P axis, V-rate 50- 99 Left atrial enlargement...P, P'>60mS, <-0.15mV V1 Baseline wander in lead(s) V2
== END 2022-11-03 12:07 | disposition home or self-care (01) ==
PROVIDERS: Visit Provider Family Medicine
DX: Z79.899 Other long term (current) drug therapy (principal)
CPT/HCPCS: 93005; 93010

== ENCOUNTER 2023-10-16 15:13 | Outpatient (REF) | payer MEDICAID, SELFPAY ==
[2023-10-16 16:40] LABS: Abs Immature Grans 0.02 10^3/uL (0.0-0.06); Absolute Basophil Count 0.05 10^3/uL (0.0-0.2); Absolute Eosinophil Count 0.16 10^3/uL (0.0-0.7); Absolute Lymphocyte Count 3.03 10^3/uL (1.2-3.4); Absolute Monocyte Count 0.55 10^3/uL (0.1-0.8); Absolute Neutrophil Count 2.76 10^3/uL (1.2-6.7); Basophils % 0.8 %; Eosinophils % 2.4 %; HCT 44.8 % (36.0-46.0); HGB 14.1 g/dL (11.2-15.7); Immature Grans % 0.3 %; Lymphocytes % 46.1 %; MCHC 31.5 % (32.0-36.0); MCV 92 fL (80-95); MPV 11.1 fL (8.0-11.0); Monocytes % 8.4 %; Platelet Count 233 10^3/uL (130-400); RBC 4.87 10^6/uL (3.93-5.22); RDW 13.5 % (11.7-14.6); RDW-SD 46.2 fL; WBC 6.57 10^3/uL (4.4-10.8)
[2023-10-16 16:55] LABS: Hemoglobin A1C 6.1 % (<5.7)
[2023-10-16 17:19] LABS: ALT 23 U/L (14-59); AST 14 U/L (15-37); Albumin 3.7 g/dL (3.4-5.0); Alkaline Phosphatase 108 U/L (46-116); Anion Gap 6.4 mmol/L (3-11); BUN 18 mg/dL (7-18); Bilirubin, Total 0.25 mg/dL (0.2-1.0); CO2 33.6 mmol/L (21.0-32.0); CREATININE 0.8 mg/dL (0.55-1.02); Calcium 9.2 mg/dL (8.5-10.1); Chloride 99 mmol/L (98-107); Cholesterol 206 mg/dL (<200); Estimated GFR 88.05 (mL/min/1.73m2); Glucose 102 mg/dL (74-106); Potassium 4.4 mmol/L (3.5-5.1); Sodium 139 mmol/L (136-145); TSH (W/Ref FT4) 4.65 uIU/mL (0.36-3.74); Total Protein 7.7 g/dL (6.4-8.2); Triglyceride 119 mg/dL (<150); Vitamin B12 397 pg/mL (193-986); Vitamin D 25 Total 25.5 ng/mL (30-100)
[2023-10-16 17:39] LABS: Calculated LDL 125 mg/dL (<100); HDL Cholesterol 58 mg/dL (40-60)
[2023-10-16 18:00] LABS: FREE T4 0.88 ng/dL (0.76-1.46)
[2023-10-19 09:52] LABS: HIV-1/2 Ag & Ab Screen Negative (Negative)
[2023-10-19 10:21] LABS: Hepatitis A Antibody IgM Negative (Negative); Hepatitis B Core Antibody Negative (Negative); Hepatitis B surface Ag Negative (Negative); Hepatitis C Ab w Rflx HCV PCR Negative (Negative)
== END 2023-10-16 15:14 | disposition home or self-care (01) ==
LOC: LBN 15:13
PROVIDERS: PCP Nurse Practitioner Family; Visit Provider Nurse Practitioner Family
DX: F43.10 Post-traumatic stress disorder, unspecified (principal); D55.9 Anemia due to enzyme disorder, unspecified; D51.3 Other dietary vitamin B12 deficiency anemia; I10 Essential (primary) hypertension; E78.5 Hyperlipidemia, unspecified
CPT/HCPCS: 80053; 80061; 82306; 86704; 86709; 86803; 87340; 87389; 82607; 83036; 84439; 84443; 85025

== ENCOUNTER 2025-02-22 06:54 | Emergency (ER) | payer MEDICAID, SELFPAY ==
[2025-02-22] VITALS (33 sets, daily range): BP systolic 118–166; BP diastolic 51–85; PULSE 71–100; RESP 12–20; TEMP 36.8; O2SAT 90–100
--- NOTE | 2025-02-22 07:00 | DI.RAD_ITS ---
Exam(s) XR CHEST 2V PA LATERAL EXAM: XR CHEST 2V PA LATERAL CLINICAL HISTORY: cough, leg swelling TECHNIQUE: 2D digital imaging was performed. Two views. COMPARISON: CT CT CHEST LUNG CANCER SCREEN from 09/20/2021 FINDINGS: HEART: Normal size. Aorta: Not dilated. PULMONARY VASCULATURE: Prominent. MEDIASTINUM: Unremarkable. LUNGS: Increased symmetric bilateral interstitial markings could indicate mild pulmonary edema. PLEURAL SPACE: No pleural effusion or pneumothorax. BONE:Unremarkable for age. SOFT TISSUES: Unremarkable. IMPRESSION: Mild CHF. DATA REPOSITORY: RADIATION DOSE DELIVERED:
[2025-02-22 07:33] LABS: Abs Immature Grans 0.05 10^3/uL (0.0-0.06); HCT 37.9 % (36.0-46.0); HGB 12.0 g/dL (11.2-15.7); Immature Grans % 0.4 %; MCH 29.2 pg (27.0-33.0); MCHC 31.7 % (32.0-36.0); MCV 92 fL (80-95); MPV 9.7 fL (8.0-11.0); Platelet Count 202 10^3/uL (130-400); RBC 4.11 10^6/uL (3.93-5.22); RDW 13.2 % (11.7-14.6); RDW-SD 44.6 fL; WBC 13.22 10^3/uL (4.4-10.8)
[2025-02-22 08:00] LABS: Troponin I 4 ng/L (<35)
[2025-02-22 08:01] LABS: ALT 14 U/L (10-49); AST 19 U/L (<34); Albumin 4.2 g/dL (3.2-5.0); Alkaline Phosphatase 83 U/L (46-116); Anion Gap 8.8 mmol/L (3-11); BUN 28 mg/dL (9-23); Bilirubin, Total 0.3 mg/dL (0.2-1.2); CO2 31.2 mmol/L (20.0-31.0); Calcium 8.6 mg/dL (8.3-10.6); Chloride 100 mmol/L (98-107); Glucose 133 mg/dL (74-106); Potassium 3.7 mmol/L (3.5-5.1); Sodium 140 mmol/L (136-145); Total Protein 7.6 g/dL (5.7-8.2)
[2025-02-22 08:04] LABS: TSH (W/Ref FT4) 3.53 uIU/mL (0.55-4.78)
--- NOTE | 2025-02-22 08:15 | RT.EKG_ITS ---
APPROVED REPORT Exam: Resting ECG Reason for Exam: tachycardic, sob Patient Location: E HR:79 bpm ECG Measurements Heart Rate 79 AXIS CO 135 P 51 QRSd 88 QRS 83 QT 385 T 69 QTc 442 Conclusion Sinus rhythm...normal P axis, V-rate 60- 99 Probable left atrial enlargement...P >50mS, <-0.10mV V1
--- NOTE | 2025-02-22 09:14 | ED.GENADUL_ITS ---
Discharge Plan Disposition Patient Disposition: Against Medical Advice Discharge Details Clinical Impression: Acute CHF (congestive heart failure), ADITI (acute kidney injury), Newly recognized heart murmur, Hypoxia Primary Care Provider: Yeal Gomes ED Provider: Mehran Olmstead Home Meds and New Rx's Prescriptions: No Action No Known Home Meds Discharge Instructions Instructions: Leaving Against Medical Advice Additional Instructions: You are leaving AGAINST MEDICAL ADVICE. It has been recommended that you be hospitalized for further diagnostic workup and treatment. You may have potentially life-threatening or lifestyle modifying disease that we will go untreated. You acknowledge the risk of leaving at this time and understand that you can return at any time for further diagnostic workup and treatment as recommended. Please feel free to return to the emergency department at any time. Please follow-up with your primary care physician as soon as possible. Stand Alone Forms: Portal Information Referrals: Yael Gomes [Primary Care Provider, Medicine] [facility] General Mode of arrival: ambulatory . Date/Time Provider Initiated Documentation: 02/22/25 07:11 . Limitations to Documentation: no limitations . Information obtained by: patient . HPI Narrative: 54-year-old female with history of IV drug use, here with new onset of bilateral lower extremity swelling for the past 1 to 2 weeks. Swelling is moderate to severe and persistent. She has not experienced similar in the past. She also notes associated harsh, productive cough and shortness of breath over the past 2-3+ weeks. Subjective fever last night. No chest pain. No calf pain. Related Data Home Medications ?Medication ?Instructions ?Recorded ?Confirmed Unknown [No Known Home Meds] 02/22/25 1 04/25/24 Allergies Allergy/AdvReac Type Severity Reaction Status Date / Time No Known Allergies Allergy Verified 02/22/25 07:06 General Stated Complaint: Orthopedic DIANE: 4 Review of Systems All systems reviewed & are unremarkable except as noted in HPI and below Constitutional Constitutional: Reports fever(s) Cardiovascular Cardiovascular: Reports as per HPI and Denies chest pain Respiratory Respiratory: Reports as per HPI Exam Const General: cooperative and no acute distress HENMT Mouth: moist mucous membranes Eyes Conjunctivae: normal conjunctivae Sclera: normal sclerae Neck Neck: trachea midline and supple Resp Effort & Inspection: able to speak in complete sentences, cough, not labored and not tachypneic Auscultation: rales bilaterally at the base, no rhonchi and no wheezes Cardio Rate: regular rate and tachycardic Rhythm: regular rhythm Heart Sounds: murmur (3/6 loudest over lt upper sternal border) systolic GI Palpation: soft, not firm, no guarding, no masses, not rigid and nontender Skin General skin exam: no rashes or lesions noted Neuro General: patient alert, patient awake, patient oriented x3 and tone normal Extrem General: edema (1+ pitting up shins) Laterality: bilateral Psych Appearance: grossly normal Mental Status: mental status grossly normal Course Vital Signs Vital signs: Vital Signs Temperature 36.8 C 02/22/25 07:02 Pulse 100 H 02/22/25 07:02 Respiratory Rate 16 02/22/25 07:02 Blood Pressure 166/70 H 02/22/25 07:02 Pulse Oximetry 90 L 02/22/25 07:02 Temperature 36.8 C 02/22/25 07:02 Temperature Source Oral 02/22/25 07:02 Pulse 79 02/22/25 08:31 Pulse 81 02/22/25 08:31 Respiratory Rate 12 02/22/25 08:31 Respiratory Effort Normal, Non-Labored 02/22/25 07:09 Respiratory Depth Normal 02/22/25 07:09 Respiratory Pattern Normal 02/22/25 07:09 Blood Pressure 135/67 02/22/25 08:30 Blood Pressure Mean 82 02/22/25 08:30 Blood Pressure Position Sitting 02/22/25 07:02 Pulse Oximetry 92 02/22/25 07:50 Oxygen Delivery Method Room Air 02/22/25 07:02 Oxygen Flow Rate 0 02/22/25 07:02 Lab/Test Results Lab/Test Results: 02/22/25 08:25 Blood Blood Culture - Pending 02/22/25 07:41 Blood Blood Culture - Pending 02/22/25 07:41 Blood Blood Culture - Pending 02/22/25 07:41 Blood Blood Culture - Pending Laboratory Tests Range/Units 02/22/25 02/22/25 07:22 08:25 WBC (4.4-10.8) 10^3/uL 13.22 H RBC (3.93-5.22) 10^6/uL 4.11 Hgb (11.2-15.7) g/dL 12.0 Hct (36.0-46.0) % 37.9 MCV (80-95) fL 92 MCH (27.0-33.0) pg 29.2 MCHC (32.0-36.0) % 31.7 L RDW (11.7-14.6) % 13.2 Plt Count (130-400) 10^3/uL 202 MPV (8.0-11.0) fL 9.7 Immature Gran % % 0.4 Neutrophils % % 78.5 Lymphocytes % % 13.9 Monocytes % % 4.2 Eosinophils % % 2.6 Basophils % % 0.4 Nucleated RBC % (0.0-0.3) % 0.0 Absolute Neutrophils (1.2-6.7) 10^3/uL 10.38 H Absolute Lymphocytes (1.2-3.4) 10^3/uL 1.84 Absolute Monocytes (0.1-0.8) 10^3/uL 0.56 Absolute Eosinophils (0.0-0.7) 10^3/uL 0.34 Absolute Basophils (0.0-0.2) 10^3/uL 0.05 VBG Lactate (<or=2.0) mmol/L 0.8 Sodium (136-145) mmol/L 140 Potassium (3.5-5.1) mmol/L 3.7 Chloride (98-107) mmol/L 100 Carbon Dioxide (20.0-31.0) mmol/L 31.2 H Anion Gap (3-11) mmol/L 8.8 BUN (9-23) mg/dL 28 H Creatinine (0.55-1.02) mg/dL 1.26 H Est GFR (CKD-EPI 2020) (mL/min/1.73m2) 44.03 Glucose (74-106) mg/dL 133 H Calcium (8.3-10.6) mg/dL 8.6 Total Bilirubin (0.2-1.2) mg/dL 0.3 AST (<34) U/L 19 ALT (10-49) U/L 14 Alkaline Phosphatase (46-116) U/L 83 Troponin I (<35) ng/L 4 NT-Pro-B Natriuret Pep (<300) pg/mL 126 Total Protein (5.7-8.2) g/dL 7.6 Albumin (3.2-5.0) g/dL 4.2 TSH (0.55-4.78) uIU/mL 3.53 COVID-19 Source Cancelled SARS-CoV-2 (PCR) Cancelled Influenza Type A (PCR) Cancelled Influenza Type B (PCR) Cancelled RSV (PCR) Cancelled Medical Decision Making 905??54-year-old female with history of IV drug use, here with bilateral lower extremity edema over the past couple weeks, shortness of breath with harsh cough over the past 2 to 3 weeks. Patient saturating in the low 90s. She is tachycardic and hypertensive on arrival. High concern for acute congestive heart failure. Consider renal failure. Labs reviewed: Patient has significant leukocytosis. Creatinine is elevated to 1.26 which is a significant elevation from her baseline 0.8. This is consistent with ADITI. BNP and troponin normal. Chest x-ray was reviewed and interpreted by radiology: Pulmonary vasculature noted to be prominent with increased symmetric bilateral interstitial markings that could indicate mild pulmonary edema. Impression: Mild CHF. Patient has a murmur on exam which she notes has not been appreciated in the past. She has had some recent subjective fevers. Currently afebrile. Patient does have significant leukocytosis. Given IV drug use, consider endocarditis. I will send blood cultures. Plan to obtain stat echocardiogram and will initiate antibiotic coverage including cefepime IV, vancomycin IV. I am concerned about potential acute valvular disease leading to CHF. --EKG was reviewed and interpreted by me: Please report, sinus rhythm 79 bpm, probable left atrial enlargement. Nondiagnostic. -- Echo performed. Interpretation pending. 1155 --patient reassessed and results discussed. Discussed plan. Patient wishes to leave at this time. Patient has decisional making capacity and has provided informed refusal of diagnostic treatment plan as recommended. She wishes to leave at this time to deal with some issues at home and will plan to return. I again reiterated my concerns and recommendation and explained that she may have lifestyle modifying or life-threatening disease that we will go undiagnosed and untreated. She again acknowledged my concern and still wishes to leave AGAINST MEDICAL ADVICE. I also spoke with the patient's friend who is here with her, she to encourage the patient to stay and was unsuccessful. Cefepime has been administered. Vancomycin was not yet administered. Lab Data Lab results reviewed: Yes I reviewed the patient's lab results. Labs: 02/22/25 08:25 Blood Blood Culture - Pending 02/22/25 07:41 Blood Blood Culture - Pending 02/22/25 07:41 Blood Blood Culture - Pending 02/22/25 07:41 Blood Blood Culture - Pending Laboratory Tests Range/Units 02/22/25 02/22/25 07:22 08:25 WBC (4.4-10.8) 10^3/uL 13.22 H RBC (3.93-5.22) 10^6/uL 4.11 Hgb (11.2-15.7) g/dL 12.0 Hct (36.0-46.0) % 37.9 MCV (80-95) fL 92 MCH (27.0-33.0) pg 29.2 MCHC (32.0-36.0) % 31.7 L RDW (11.7-14.6) % 13.2 Plt Count (130-400) 10^3/uL 202 MPV (8.0-11.0) fL 9.7 Immature Gran % % 0.4 Neutrophils % % 78.5 Lymphocytes % % 13.9 Monocytes % % 4.2 Eosinophils % % 2.6 Basophils % % 0.4 Nucleated RBC % (0.0-0.3) % 0.0 Absolute Neutrophils (1.2-6.7) 10^3/uL 10.38 H Absolute Lymphocytes (1.2-3.4) 10^3/uL 1.84 Absolute Monocytes (0.1-0.8) 10^3/uL 0.56 Absolute Eosinophils (0.0-0.7) 10^3/uL 0.34 Absolute Basophils (0.0-0.2) 10^3/uL 0.05 VBG Lactate (<or=2.0) mmol/L 0.8 Sodium (136-145) mmol/L 140 Potassium (3.5-5.1) mmol/L 3.7 Chloride (98-107) mmol/L 100 Carbon Dioxide (20.0-31.0) mmol/L 31.2 H Anion Gap (3-11) mmol/L 8.8 BUN (9-23) mg/dL 28 H Creatinine (0.55-1.02) mg/dL 1.26 H Est GFR (CKD-EPI 2020) (mL/min/1.73m2) 44.03 Glucose (74-106) mg/dL 133 H Calcium (8.3-10.6) mg/dL 8.6 Total Bilirubin (0.2-1.2) mg/dL 0.3 AST (<34) U/L 19 ALT (10-49) U/L 14 Alkaline Phosphatase (46-116) U/L 83 Troponin I (<35) ng/L 4 NT-Pro-B Natriuret Pep (<300) pg/mL 126 Total Protein (5.7-8.2) g/dL 7.6 Albumin (3.2-5.0) g/dL 4.2 TSH (0.55-4.78) uIU/mL 3.53 COVID-19 Source Cancelled SARS-CoV-2 (PCR) Cancelled Influenza Type A (PCR) Cancelled Influenza Type B (PCR) Cancelled RSV (PCR) Cancelled PFSH All Active Problems (Updated 02/22/25 @ 11:59 by Mehran Olmstead MD) Hypoxia (Acute) Newly recognized heart murmur (Acute) ADITI (acute kidney injury) (Acute) Acute CHF (congestive heart failure) (Acute) Medical History Narcotic abuse in remission Surgical History History of bilateral tubal ligation Social History Smoking/Tobacco Use Status: Current every day Tobacco Type: cigarettes Smoking risk assessment performed?: Yes Alcohol Intake: never Drug use: Never Substance use type: does not use Do you feel safe at home: Yes Do you feel safe in your relationship?: Yes
[2025-02-22] MEDS: CEFEPIME 2 GM in Normal Saline 100 ML IVPB (11:43)
[2025-02-22 13:57] LABS: Cannabinoids THC Negative (Negative)
== END 2025-02-22 12:21 | disposition left against medical advice (07) ==
PROVIDERS: Emergency Provider Student in an Organized Health Care Education/Training Program; PCP Nurse Practitioner Family
DX: I50.9 Heart failure, unspecified (principal); N17.9 Acute kidney failure, unspecified; R01.1 Cardiac murmur, unspecified; R09.02 Hypoxemia; R22.43 Localized swelling, mass and lump, lower limb, bilateral
CPT/HCPCS: 36415; 80053; 80307; 87040; 87637; 93005; 96365; 99284; 71046; 83605; 83880; 84443; 84484; 85025; 93010; 93306; 99285; J0692